=== PATIENT | female | born 1985 | race Caucasian/White ===

== ENCOUNTER 2017-10-07 12:25 | Emergency (ER) | payer MEDICAID, OTHER ==
[~2017-10-07] VITALS: Ht 149.9 cm; Wt 68.0 kg
[2017-10-07 12:32] VITALS: BP 126/51
== END 2017-10-07 13:30 | disposition left against medical advice (07) ==
LOC: EDSEX 12:25 → ER 12:25 → EDBD 12:25 → ER 13:30
DX: R51 Headache (principal); Z53.21 Procedure and treatment not carried out due to patient leaving prior to being seen by health care provider

== ENCOUNTER 2017-11-05 08:24 | Emergency (ER) | payer MEDICAID ==
[~2017-11-05] VITALS: Ht 149.9 cm; Wt 68.0 kg
[2017-11-05 08:39] VITALS: BP 110/66
[2017-11-05] MEDS ORDERED: SUMAtriptan SUCCINATE 6 MG/0.5 ML VL SC ONE (09:00)
== END 2017-11-05 09:52 | disposition home or self-care (01) ==
LOC: ER 08:24
DX: G43.909 Migraine, unspecified, not intractable, without status migrainosus (principal); Z88.1 Allergy status to other antibiotic agents; Z88.8 Allergy status to other drugs, medicaments and biological substances
CPT/HCPCS: 96372; 99283; J3030

== ENCOUNTER 2018-08-25 16:33 | Emergency (ER) | payer MEDICAID ==
[~2018-08-25] VITALS: Ht 157.5 cm; Wt 63.5 kg
[2018-08-25 16:43] VITALS: BP 102/66
== END 2018-08-25 22:00 | disposition left against medical advice (07) ==
LOC: ER 16:33 → EDBD 16:33 → ER 22:00
DX: R51 Headache (principal); Z53.21 Procedure and treatment not carried out due to patient leaving prior to being seen by health care provider
CPT/HCPCS: 70450; 81025